=== PATIENT | female | born 1985 | race Caucasian/White ===

== ENCOUNTER 2020-09-07 09:28 | Emergency (ER) | payer BC ==
[~2020-09-07] VITALS: Ht 152.4 cm; Wt 49.9 kg
[2020-09-07 09:39] VITALS: BP 125/92
--- NOTE | 2020-09-07 09:45 | NUR ---
URINE SPECIMEN COLLECTED AND SENT TO LAB
== END 2020-09-07 10:44 | disposition home or self-care (01) ==
LOC: ER 09:32
DX: T83.32XA Displacement of intrauterine contraceptive device, initial encounter (principal); Z60.2 Problems related to living alone
CPT/HCPCS: 76856-TC; 84703-TC